=== PATIENT | male | born 1980 | race Caucasian/White ===

== ENCOUNTER 2021-09-21 13:08 | Observation (INO) ==
--- NOTE | 2021-09-20 11:53 | Anesthesiology Consultation ---
Date of Service September 20, 2021 Assessment & Plan (1) Encounter for pre-operative examination: Chart Review Chart Review: Acceptable Risk for Surgery (pending preop Covid testing results ) and Patient NOT seen in Pre Admission Testing -Discussed recent compression fractures with Dr. Reilly- patient can proceed as scheduled- use caution with transferring. No head/brain injury per CT scans done in ER 09/14/21. Per nursing assessment 09/20/2021, patient denies any recent travel. No known COVID infection in the past 90 days. Patient is fully vaccinated for COVID. No known Covid positive exposures or Covid related symptoms. Preop Covid testing 09/20/21= results pending History Surgery Operation Date: 09/21/21 07:00 Proposed Procedures p Right Foot Open Reduction Internal Fixation Calcaneus Fracture - Chago Dumont DO Height/Weight Height: 5 ft 7 in Weight: 77.111 kg Allergies Allergy/AdvReac Type Severity Reaction Status Date / Time gabapentin Allergy Intermediate SUICIDAL Verified 09/20/21 11:57 THOUGHTS pollen extracts Allergy Intermediate ITCHY Verified 09/20/21 11:57 EYES, SNEEZING, CONGESTION Medications Home Medications Medication Instructions Recorded Confirmed Last Taken lithium carbonate 600 mg capsule 1,200 mg PO HS 11/08/19 09/20/21 09/02/21 mirtazapine 15 mg tablet 7.5 mg PO HS 11/08/19 09/20/21 09/02/21 Medical Marijuana 1 dose DIRECTED PRN NEEDED 06/02/21 09/20/21 Unknown benztropine 1 mg tablet 1 mg PO BID 06/02/21 09/20/21 09/03/21 08:00 propranolol 10 mg tablet 10 mg PO BID 06/02/21 09/20/21 09/03/21 08:00 quetiapine 300 mg tablet 300 mg PO HS 09/03/21 09/20/21 09/02/21 oxycodone 5 mg tablet 5 mg PO Q6H PRN pain #12 tabs 09/14/21 Unknown naltrexone microspheres 380 mg 380 mg IM UD 09/20/21 09/20/21 Unknown intramuscular suspension,extended release (Vivitrol) Past Medical History Medical History Anxiety and depression Bipolar II disorder (08/28/11) Compression fracture Noted on 09/14/[address] - "acute superior endplate compression fractures of T12 and L1 with minimal loss of height" (Pt s/p fall out of tree stand) Herniated intervertebral disc History of alcoholism Polysubstance dependence (08/28/11) Schizophrenia Seizure As a child Past Family History Family History Other No family history of adverse response to anesthesia Past Surgical History Surgical History History of hand surgery Rt History of wisdom tooth extraction No pertinent past surgical history Social History Smoking Status: Current every day smoker tobacco type: cigarettes Smoking cigarettes per day: 10 per day Do You Dip or Chew Tobacco: No (quit ) Hx Alcohol Use: Yes alcohol intake frequency: other (quit drinking 3-4 years ago- on vivitrol monthly ) Hx Substance Use: Yes substance use type: marijuana Substance Use Type Other:: medical marijuana Last Used Substance: Days (ago) Lab Results Anesthesia Preop Results Results Anesthesia Widget: WBC 16.41 K/ul (4.8-10.8) H 09/14/21 Hgb 15.5 g/dl (14.0-18.0) 09/14/21 Hct 44.4 % (40.1-51.0) 09/14/21 Plt 290 K/uL (130-400) 09/14/21 Na 136 mmol/L (136-145) 09/14/21 K 3.8 mmol/L (3.5-5.1) 09/14/21 Cl 105 mmol/L (98-107) 09/14/21 CO2 20 mmol/L (21-32) L 09/14/21 BUN 15 mg/dl (6-23) 09/14/21 Creat 1.00 mg/dl (0.6-1.4) 09/14/21 Glucose Level 111 mg/dl (70-99(Fasting)) H 09/14/21 PT 10.7 Seconds (9.0-12.0) 09/03/21 PTT 28.9 Seconds (21.0-31.0) 09/03/21 INR 1.0 (0.9-1.1) 09/03/21 Testing Electrocardiogram Date: 09/14/21 Findings: + NSR @ (79bpm ) Normal EKG per cardio. Chest X-Ray Date: 09/03/21 Findings: + NAD 1 view CXR Minimal bibasilar atelectasis. Other Testing CT of the Chest, Lumbar Spine, and Abdomen/Pelvis 09/14/21= There are acute superior endplate compression fractures of T12 and L1 with minimal loss of height. No additional fracture is seen. There is no airspace consolidation, pleural effusion, or pneumothorax. There is no evidence of solid organ injury in the abdomen or pelvis. Right gluteal soft tissue injury/laceration. Head CT 09/14/2021 = no acute intracranial hemorrhage, no evidence of acute territorial infarction or other acute intracranial disease process. Face CT 09/14/2021 = no acute abnormality. Chronic left frontal and ethmoid sinusitis.
--- NOTE | 2021-09-20 18:04 | History & Physical Report ---
Date of Service September 20, 2021 Assessment & Plan (1) Closed right calcaneal fracture: Plan: Schedule an ORIF right calcaneus fracture for 09/21/2021. All potential risks, benefits, complications, alternatives, and rehab have been discussed with the patient and he wishes to proceed. For aspirin 81 mg twice daily x4 weeks for postoperative DVT prophylaxis. Calcaneus location: unspecified portion of calcaneus Encounter type: initial encounter Fracture alignment: displaced Qualified Code(s): S92.001A - Unspecified fracture of right calcaneus, initial encounter for closed fracture History of Present Illness Chief Complaint: Right heel pain Primary Care Provider: Domo Choe, This is a patient who sustained fall from height, he states approximately 20 feet ago, and had an inability to ambulate. He had x-rays performed which noted a calcaneus fracture. He later had a CT scan which noted a comminuted, intra- articular, displaced calcaneus fracture. He is now being set up for surgical treatment. Allergies Allergy/AdvReac Type Severity Reaction Status Date / Time gabapentin Allergy Intermediate SUICIDAL Verified 09/20/21 11:57 THOUGHTS pollen extracts Allergy Intermediate ITCHY Verified 09/20/21 11:57 EYES, SNEEZING, CONGESTION Home Medications Medication Instructions Recorded Confirmed Type lithium carbonate 600 mg capsule 1,200 mg PO HS 11/08/19 09/20/21 History mirtazapine 15 mg tablet 7.5 mg PO HS 11/08/19 09/20/21 History Medical Marijuana 1 dose DIRECTED PRN NEEDED 06/02/21 09/20/21 History benztropine 1 mg tablet 1 mg PO BID 06/02/21 09/20/21 History propranolol 10 mg tablet 10 mg PO BID 06/02/21 09/20/21 History quetiapine 300 mg tablet 300 mg PO HS 09/03/21 09/20/21 History oxycodone 5 mg tablet 5 mg PO Q6H PRN pain #12 tabs 09/14/21 Rx naltrexone microspheres 380 mg 380 mg IM UD 09/20/21 09/20/21 History intramuscular suspension,extended release (Vivitrol) Past Med/Surg History Medical History Anxiety and depression Bipolar II disorder (06/27/12) Compression fracture Noted on 09/14/[address] - "acute superior endplate compression fractures of T12 and L1 with minimal loss of height" (Pt s/p fall out of tree stand) Herniated intervertebral disc History of alcoholism quit 3-4 years ago - on vivitrol monthly Polysubstance dependence (08/28/11) Poor historian Schizophrenia Seizure As a child Surgical History History of hand surgery Rt History of wisdom tooth extraction No pertinent past surgical history Family History Other No family history of adverse response to anesthesia Social History Smoking Status: Current every day smoker Tobacco Type: Cigarettes Cigarettes Per Day: 10 per day; Second Hand Exposure: No; Do You Dip or Chew Tobacco: No (quit ); Tobacco Cessation Education Requested by Patient: No Hx Alcohol Use: Yes Hx Substance Use: Yes Last Used Substance: Days (ago) Substance Use Type Other:: medical marijuana Preferred Language: Cambodian Communication Ability: Effective Measurement Specialist Required: No Beliefs That Will Affect Care: None marital status: Single Current Living Situation: Family current occupational status: disabled Feels Safe at Home: Yes Safety Concerns: Feels Safe At This Time Assistive Devices: Crutches Physical Exam Constitutional: well developed and well nourished; no acute distress ENMT: external ear and nose normal, oropharynx normal Neck: trachea midline Respiratory: normal respiratory effort, lungs clear to auscultation Cardiovascular: Rate/Rhythm: regular rate and regular rhythm Gastrointestinal (Abdomen): normal bowel sounds, soft, nontender, no hepatosplenomegaly Musculoskeletal: Ankle: + ecchymosis and + joint line tenderness (ankle) (Right calcaneus); no skin erythema Skin: no rashes, warm and dry Trauma: no evidence of skin trauma Neurologic: normal touch/pain/proprioception Psychiatric: A+Ox3, euthymic affect Speech: normal rate/rhythm/volume of speech Lymphatic: no cervical or axillary lymphadenopathy
[~2021-09-21 13:08] MED LIST: LACTATED RINGER'S 1,000 ML IV SCH; ROPIVACAINE 0.5% 5 MG/ML 30 ML VIAL ONE; SODIUM CHLORIDE 0.9% INJ 10 ML VIAL ONE; ceFAZolin 2000MG 2,000 MG/15 ML SYR IV SCH
--- NOTE | 2021-09-21 13:34 | History & Physical Bridge Note ---
Date of Service September 21, 2021 History & Physical Bridge Note I have examined the patient, reviewed the History & Physical and in the interval since the performance of the History & Physical I have noted the following changes of clinical significance: no changes noted
[2021-09-21] MEDS ORDERED: PROPOFOL IV EMULSION 10 MG/ML 20 ML VIAL IV ONE (13:42)
[2021-09-21] MEDS ORDERED: ROCURONIUM BROMIDE 10 MG/ML 5 ML VIAL IV ONE ×3 (13:42→17:06)
[2021-09-21] MEDS ORDERED: fentaNYL citrate 100 MCG/2 ML VIAL ONE (13:42)
[2021-09-21] MEDS ORDERED: ONDANSETRON INJ 2 MG/ML 2 ML VIAL ONE (13:42)
[2021-09-21] MEDS ORDERED: MIDAZOLAM HCL 1 MG/ML 2ML VIAL ONE (13:42)
[2021-09-21] MEDS ORDERED: LIDOCAINE 2% 2 ML VIAL/AMP(20MG/ML) INFIL ONE (13:42)
[2021-09-21] MEDS ORDERED: DEXAMETHASONE SOD INJ 4 MG/ML VIAL ONE ×2 (13:42→17:06)
[2021-09-21] MEDS ORDERED: ACETAMINOPHEN 1000 MG/100 ML IV IV ONE (15:25)
[2021-09-21] MEDS ORDERED: BUPIVACAINE 0.5 % 5 MG/1 ML MPF 30ML VIAL ONE (15:54)
[2021-09-21] MEDS ORDERED: ceFAZolin 330 MG/ML 1 GM VIAL ONE (15:54)
[2021-09-21] MEDS ORDERED: KETAMINE 50 MG/5 ML SYRINGE ONE (15:56)
[2021-09-21] MEDS ORDERED: SUGAMMADEX SODIUM 200 MG/2 ML VIAL IV ONE (16:34)
[2021-09-21] MEDS ORDERED: DexMEDEtomidine HCL IV 100 MCG/ML VIAL IV ONE (16:34)
[2021-09-21] MEDS ORDERED: PHENYLEPHRINE HCL 10 MG/ML VIAL ONE (17:50)
[2021-09-21] MEDS ORDERED: HYDROmorphone INJ 2 MG/ML SYR/VIAL ONE (18:12)
[2021-09-21] MEDS ORDERED: GLYCOPYRROLATE 0.2 MG/ML VIAL ONE (18:22)
[2021-09-21] MEDS ORDERED: NEOSTIGMINE METHYLSULFATE 1 MG/ML 10ML VIAL ONE (18:22)
--- NOTE | 2021-09-21 18:47 | Fluoroscopy Report ---
FL ankle RT min 3V RTN CLINICAL HISTORY: ORIF RT ANKLE TECHNIQUE: 3 views were obtained with the C-arm in the OR with the above procedure. Total fluoroscopy time was 50 seconds. Total skin dose was 2.13 mGy. Comparison: Comparison is made to ankle radiograph 09/14/2021 FINDINGS/IMPRESSION: Intraoperative images were obtained of open reduction and internal fixation of r ight ankle and calcaneal fractures Please correlate with intraoperative fluoroscopy and operative report. ACT 112: Negative or not required by law. Electronically signed by: Kyle Bryant M.D. 09/21/2021 6:46 PM
--- NOTE | 2021-09-21 18:59 | Post Operative Brief Note ---
Immediate Post Op Note v1 Date of Surgery September 21, 2021 Pre & Post Diagnosis Operation Date: 09/21/21 07:00 Pre-Op Diagnosis: Right Foot displaced, comminuted, intra-articular calcaneus Fracture, Fall from a height greater than 10 feet Post-Op Diagnosis: Right Foot displaced, comminuted, intra-articular calcaneus Fracture, Fall from a height greater than 10 feet I identified the patient and participated in the time-out.: Yes Procedure Operation Date: 09/21/21 07:00 Actual Procedures p Right Foot Open Reduction Internal Fixation displaced, comminuted, intra- articular calcaneus Fracture(Right) - Chago Dumont DO Surgeon Chago Dumont DO Industrial Property Appraiser Stephen Galeas PA-C Estimated Blood Loss 7 Findings Consistent with Post-Op Diagnosis Anesthesia Type General Regional Complications none Disposition Accompanied Patient To Recovery: No
--- NOTE | 2021-09-21 19:52 | Anesthesiology Progress Note ---
Date of Service September 21, 2021 Anesthesia Post Procedure Vital Signs Vital Signs: Temp Pulse Pulse Resp BP Pulse Ox O2 Del Method 09/21/21 19:39 69 17 115/80 94 Room Air 09/21/21 19:20 63 17 120/80 98 Oxymask 09/21/21 19:10 66 17 118/78 98 Oxymask 09/21/21 19:30 36.4 C L 65 19 121/76 98 Room Air 09/21/21 19:02 36.5 C 73 24 123/70 100 Oxymask 09/21/21 13:29 36.5 C 65 20 139/74 95 Room Air O2 Flow Rate 09/21/21 19:39 09/21/21 19:20 2 09/21/21 19:10 4 09/21/21 19:30 09/21/21 19:02 6 09/21/21 13:29 Transfer of Care Handoff Completed per policy Notes Mental Status: alert / awake / arousable and participated in evaluation Patient Amnestic to Procedure: Yes Nausea / Vomiting: adequately controlled Pain: adequately controlled Airway Patency, RR, SpO2: stable & adequate BP & HR: stable & adequate Hydration State: stable & adequate Anesthetic Complications: no major complications apparent and Pt Satisfied with anesthetic care
[2021-09-21] MEDS ORDERED: bisacodyL 10 MG SUPP PR PRN (19:57)
[2021-09-21] MEDS ORDERED: ALUMINUM/MAGNESIUM SUSP 30 ML UDC PO PRN (19:57)
[2021-09-21] MEDS ORDERED: diphenhydrAMINE Capsule 25 MG CAP PO PRN (19:57)
[2021-09-21] MEDS ORDERED: HYDROmorphone INJ 0.5 MG/0.5 ML SYR IV PRN (19:57)
[2021-09-21] MEDS ORDERED: METOCLOPRAMIDE HCL INJ 5 MG/ML 2 ML VIAL IV PRN (19:57)
[2021-09-21] MEDS ORDERED: NALOXONE HCL 0.4 MG/1 ML VIAL/CARP IV PRN (19:57)
[2021-09-21] MEDS ORDERED: MAGNESIUM HYDROXIDE SUSP 30 ML UDC PO PRN (19:57)
[2021-09-21] MEDS ORDERED: ONDANSETRON INJ 2 MG/ML 2 ML VIAL IV PRN (19:57)
[2021-09-21] MEDS: SODIUM CHLORIDE 0.9% 1000ML 1,000 ML IV SCH (20:05)
[2021-09-21] MEDS ORDERED: LITHIUM CARBONATE 300 MG TAB PO SCH (21:00)
[2021-09-21] MEDS ORDERED: QUEtiapine FUMARATE 300 MG TABLET PO SCH (21:00)
[2021-09-21] MEDS ORDERED: MIRTAZAPINE TAB 15 MG TAB PO SCH (21:00)
[2021-09-21] MEDS ORDERED: SENNA 8.6 MG TAB PO SCH (21:00)
[2021-09-21] MEDS: NO NSAIDS SCH (21:16)
[2021-09-21] MEDS: BENZTROPINE MESYLATE 1 MG TAB PO SCH (21:39)
[2021-09-21] MEDS: ASPIRIN 81 MG ECTAB PO SCH (21:41)
[2021-09-21] MEDS: ACETAMINOPHEN 500 MG TAB PO SCH (21:42)
[2021-09-21] MEDS: DOCUSATE SODIUM 100 MG CAP PO SCH (21:45)
[2021-09-21] MEDS: PROPRANOLOL HCL 10 MG TAB PO SCH (21:47)
[2021-09-21] MEDS ORDERED: hydrOXYzine HCl 10 MG TAB PO PRN (23:44)
[2021-09-22] MEDS: ceFAZolin 2000MG 2,000 MG/15 ML SYR IV SCH ×2 (00:18→08:34)
--- NOTE | 2021-09-22 01:56 | Operative Report (OR) ---
DATE OF PROCEDURE: 09/21/2021 PREOPERATIVE DIAGNOSES: 1. Right displaced, comminuted intraarticular calcaneus fracture. 2. Fall from a height greater than 10 feet. POSTOPERATIVE DIAGNOSES: 1. Right displaced, comminuted, intraarticular calcaneus fracture. 2. Fall from a height greater than 10 feet. PROCEDURE: Right open reduction and internal fixation of displaced, comminuted intraarticular calcaneus fracture with a large Biomet calcaneal fracture plate and multiple 3.5 mm cortical screws. SURGEON: Chago Dumont DO. JUNIOR HIGH SCHOOL PRINCIPAL: Stephen Galeas PA-C who was present for patient positioning, sterile prep and drape, management of retractors and instruments. He was present through the critical portions of the case including wound closure, application of sterile dressing and transport of the patient to recovery. ANESTHESIA: General, regional. SPECIMENS: None. DRAINS: None. COMPLICATIONS: None. BLOOD LOSS: 7 mL. PERTINENT HISTORY: This is a 41-year-old gentleman who was in a deer blind tree stand and for some purpose or reason, he fell out of the tree stand landing on his right lower extremity. He had severe pain, unable to ambulate. Eventually after being extricated from the strauss, he was presented to the Emergency Department, he was evaluated. Radiographs and CT scan were performed noting a displaced, comminuted intraarticular calcaneus fracture, right lower extremity. He was placed in a splint and referred for orthopedics. His skin was evaluated and then he was scheduled for surgery as indicated. All potential risks, benefits, complications, alternatives, rehab potential for incomplete relief of symptoms, need for further surgery, DVT, PE, , persistent pain, swelling, scarring, weakness, neurovascular injury, wound complications, hardware failure, nonunion, malunion, bone fracture were discussed with the patient and his mother. Also discussed the specific importance of zero tobacco use as this could compromise the tissue flap associated with this fracture pattern. They gave assent that he would comply and remain tobacco free during the postoperative recovery course. He understands the high risk of tissue necrosis and flap dehiscence of the surgical site should he not follow postoperative instructions implicitly. DETAILS OF PROCEDURE: The patient was taken to the operative suite and placed supine on the operating room. After identification of the proper operative site the patient was anesthetized. Endotracheal tube was placed. He had a popliteal block of the right lower extremity. The right lower extremity had a tourniquet applied on the proximal thigh over cast padding. The patient was placed in left lateral decubitus position with the affected side up on a beanbag and the right lower extremity was then sterilely prepped and draped in the usual fashion, elevated, exsanguinated with an Esmarch bandage and tourniquet inflated to 350 mmHg. Next, a 15 blade scalpel incision was used to make a curvilinear incision over the calcaneus at the glabrous border of the foot. This full thickness skin flap was sharply elevated. Care was taken to protect the skin edges. Next, K wires were placed in the fibula, talus, and cuboid to perform no-touch technique with elevation of the skin flap. Peroneal tendons were elevated and then the calcaneal fracture was clearly identified. The wound was copiously irrigated with sterile normal saline and suctioned. Small bone fragments were preserved for later use in the operative fixation. Next, the 2.0 mm guide pins were driven from the tuberosity of the calcaneus into the sustentacular fragment to stabilize it with corrected varus, valgus and then a lateral wall fragment was removed, debrided and then reduced. This was pinned in place with two 1.6 mm K wires. Next, after the fragments were stabilized in near anatomic alignment and orientation with reduction of the heel width and zoroastrian normal heel valgus x-rays were obtained confirming position and then a medium size titanium plate was then provisionally fixed with a screw into the subtalar subchondral bone. After rotation and position were confirmed the plate was then firmly affixed to the lateral aspect of the calcaneus. The fracture was noted to be in near- anatomic position and stabilized with multiple screws. The K wires were removed and the skin retractor pins were removed. The wound was irrigated with sterile normal saline. The incision was completely irrigated with bacitracin additive solution and then the bone graft which was saved previously was then placed back into the fracture to encourage bone healing. The full thickness skin flap was then closed using buried interrupted 2-0 Vicryl suture, 3-0 Vicryl sutures and then the skin was closed using 4-0 nylon sutures using Allgower-Donati suture technique with 4-0 nylon sutures. Next the sterile compressive dressing and bulky Ronnie Sierra plaster splint was applied overwrapped with an Claudio wrap. Tourniquet was released. The patient was awakened and taken to recovery in stable condition. I attest to the content of the Intraoperative Record and any orders documented therein. Any exceptions are noted below. Job ID: [id number] MTDD
[2021-09-22] MEDS: oxyCODONE HCL IR 5 MG TAB (IMMEDIATE RELEASE) PO PRN ×2 (03:08→11:53)
[2021-09-22] MEDS: SODIUM CHLORIDE 0.9% 1000ML 1,000 ML IV SCH (06:05)
[2021-09-22] MEDS: ACETAMINOPHEN 500 MG TAB PO SCH ×2 (06:05→13:31)
--- NOTE | 2021-09-22 06:24 | Orthopedic Progress Note ---
Date of Service September 22, 2021 Assessment & Plan (1) Closed right calcaneal fracture: Plan: POD#1 remain NWB RICE pain currently well controlled d/c later today, f/u in the office in 14-16 days Admission and Anticipated Discharge Date Admission Date: September 21, 2021 Subjective POD #1 s/p right Foot Open Reduction Internal Fixation Calcaneus Fracture Review of Systems Review of Systems: All systems reviewed & are unremarkable except as noted in HPI & below Constitutional: no fever, no chills and no sweats Respiratory: no cough and no dyspnea Cardiovascular: no chest pain, no dyspnea and no orthopnea Gastrointestinal: no abdominal pain, no nausea and no vomiting Musculoskeletal: as per Subjective / HPI Physical Exam Physical Exam: Vital Signs Temp Pulse Pulse Resp BP BP Pulse Ox 09/22/21 03:03 36.7 C 65 16 94/63 L 96 09/21/21 23:00 36.9 C 71 16 117/67 97 09/21/21 21:45 36.8 C 59 L 18 113/63 97 09/21/21 21:04 36.7 C 60 16 106/61 97 09/21/21 20:27 36.7 C 57 L 18 115/63 98 09/21/21 19:45 36.8 C 66 18 117/65 94 09/21/21 19:39 69 17 115/80 94 09/21/21 19:20 63 17 120/80 98 09/21/21 19:10 66 17 118/78 98 09/21/21 19:30 36.4 C L 65 19 121/76 98 09/21/21 19:02 36.5 C 73 24 123/70 100 09/21/21 13:29 36.5 C 65 20 139/74 95 O2 Del Method O2 Flow Rate 09/22/21 03:03 Room Air 09/21/21 23:00 Room Air 09/21/21 21:45 Room Air 09/21/21 21:04 Room Air 09/21/21 20:27 Room Air 09/21/21 19:45 Room Air 09/21/21 19:39 Room Air 09/21/21 19:20 Oxymask 2 09/21/21 19:10 Oxymask 4 09/21/21 19:30 Room Air 09/21/21 19:02 Oxymask 6 09/21/21 13:29 Room Air Intake and Output 09/21/21 09/21/21 09/22/21 14:59 22:59 06:59 Intake Total 0 / 8359.748 1825.333 / 1498.33 3 Output Total 600 / 2275 1675 / 2275 Balance -600 / -776.667 -176.667 / -776.66 7 Intake: IV 0 / 998.333 998.333 / 998.333 Lactated Ringe r's 1,000 ml @ 15 0 / 0 mls/hr IV .Q24 H SHEBA Rx#: [id number] Sodium Chlorid e 0.9% 1000ML 1, 998.333 / 998.333 000 ml @ 100 m ls/hr IV .Q10H SHEBA Rx#:[id number] Oral 500 / 500 Output: Urine 600 / 2275 1675 / 2275 Other: Weight 76 kg Weight Measureme nt Method Standing Scale Patient Weight 09/22/21 06:59 Weight 76 kg Constitutional: WD/WN, vitals as above no acute distress Respiratory: normal respiratory effort, lungs clear to auscultation no respiratory distress, no labored breathing and does not use accessory muscles Cardiovascular: RRR, no murmur, no edema Gastrointestinal (Abdomen): normal bowel sounds, soft, nontender, no hepatosplenomegaly Musculoskeletal: right lower leg: able to wiggle his toes, sensation intact. splint fitting well. able to perform SLR, gentle knee ROM without difficulty Results & Data ([facility]) Vital Signs (Past 12 Hours) Vital Signs Temp Pulse Pulse Resp BP BP Pulse Ox 09/22/21 03:03 36.7 C 65 16 94/63 L 96 09/21/21 23:00 36.9 C 71 16 117/67 97 09/21/21 21:45 36.8 C 59 L 18 113/63 97 09/21/21 21:04 36.7 C 60 16 106/61 97 09/21/21 20:27 36.7 C 57 L 18 115/63 98 09/21/21 19:45 36.8 C 66 18 117/65 94 09/21/21 19:39 69 17 115/80 94 09/21/21 19:20 63 17 120/80 98 09/21/21 19:10 66 17 118/78 98 09/21/21 19:30 36.4 C L 65 19 121/76 98 09/21/21 19:02 36.5 C 73 24 123/70 100 O2 Del Method O2 Flow Rate 09/22/21 03:03 Room Air 09/21/21 23:00 Room Air 09/21/21 21:45 Room Air 09/21/21 21:04 Room Air 09/21/21 20:27 Room Air 09/21/21 19:45 Room Air 09/21/21 19:39 Room Air 09/21/21 19:20 Oxymask 2 09/21/21 19:10 Oxymask 4 09/21/21 19:30 Room Air 09/21/21 19:02 Oxymask 6 (1) Closed right calcaneal fracture Calcaneus location: unspecified portion of calcaneus Encounter type: initial encounter Fracture alignment: displaced Qualified Code(s): S92.001A - Unspecified fracture of right calcaneus, initial encounter for closed fracture
[2021-09-22 06:28] LABS: Hematocrit (blood only) 37.6 % (40.1-51.0); Hemoglobin 12.5 g/dl (14.0-18.0); Mean Corpuscular Hemoglobin 28.9 pg (25.0-34.0); Mean Corpuscular Hgb Conc 33.2 g/dL (32.0-36.0); Platelet Count 281 K/uL (130-400); RDW Coefficient of Variation 12.7 % (11.5-14.5); RDW Standard Deviation 40.7 fL (36.4-46.3); Red Blood Count 4.32 M/uL (4.63-6.08); White Blood Count 14.28 K/ul (4.8-10.8)
[2021-09-22 07:03] LABS: Calcium 8.5 mg/dl (8.5-10.1); Creatinine Clr Calc Pharmacy 119.2 ml/min; Est GFR (African American) 131.6 ml/min; Est GFR (Non-African American) 113.5 ml/min
[2021-09-22] MEDS: BENZTROPINE MESYLATE 1 MG TAB PO SCH (08:31)
[2021-09-22] MEDS: PROPRANOLOL HCL 10 MG TAB PO SCH (08:31)
[2021-09-22] MEDS: ASPIRIN 81 MG ECTAB PO SCH (08:31)
[2021-09-22] MEDS: DOCUSATE SODIUM 100 MG CAP PO SCH (08:32)
[2021-09-22] MEDS: NO NSAIDS SCH (08:32)
[2021-09-22] MEDS ORDERED: MULTIVITAMIN TAB PO SCH (09:00)
--- NOTE | 2021-09-25 13:26 | Discharge Summary ---
Date of Service September 25, 2021 Admission HPI Per Admitting Provider This is a patient who sustained fall from height, he states approximately 20 feet ago, and had an inability to ambulate. He had x-rays performed which noted a calcaneus fracture. He later had a CT scan which noted a comminuted, intra- articular, displaced calcaneus fracture. He is now being set up for surgical treatment. Principal Diagnosis Right calcaneus fracture Discharge Exam Constitutional well developed and well nourished; no acute distress ENMT external ear and nose normal, oropharynx normal Neck trachea midline Respiratory normal respiratory effort, lungs clear to auscultation Cardiovascular Rate/Rhythm: regular rate and regular rhythm Gastrointestinal (Abdomen) normal bowel sounds, soft, nontender, no hepatosplenomegaly Musculoskeletal Ankle: + surgical incision (Right ankle: Splint C/D/I); no skin erythema Skin no rashes, warm and dry Trauma: no evidence of skin trauma Neurologic normal touch/pain/proprioception Psychiatric A+Ox3, euthymic affect Speech: normal rate/rhythm/volume of speech Lymphatic no cervical or axillary lymphadenopathy Discharge Data Allergies Allergy/AdvReac Type Severity Reaction Status Date / Time gabapentin Allergy Intermediate SUICIDAL Verified 09/21/21 13:20 THOUGHTS pollen extracts Allergy Intermediate ITCHY Verified 09/21/21 13:20 EYES, SNEEZING, CONGESTION Procedures Performed Operation Date: 09/21/21 07:00 Actual Procedures p Right Foot Open Reduction Internal Fixation Calcaneus Fracture(Right) - Chago Dumont DO Ordered Studies 09/21/21 05:00 US - OR guided needle placemen Routine 09/21/21 15:00 FL ankle RT min 3V RTN Routine Hospital Course (1) Closed right calcaneal fracture: POD#1 remain NWB RICE pain currently well controlled d/c later today, f/u in the office in 14-16 days Total Time Total Time Spent Total Time Spent (In Minutes): 20 Discharge Plan Discharge Items Patient Disposition: Home - Self-Care Reason For Visit: Right Foot Calcaneus Fracture Discharge Diagnosis: right calcaneus fracture Activity: Per Instructions section Weightbearing: Right non-weightbearing Non-emergency contact: Surgeon Call non-emergency contact if: your pain is not controlled, your pain is w orsening and your temperature is above 101 Follow-up/Referrals: Domo Choe DO [Primary Care Provider] - Diet: Regular Addtl Attending Provider Instructions: ACTIVITY RECOMMENDATIONS: Limitations: No weight bearing to affected limb at all times. SPECIAL CARE INSTRUCTIONS: * Take Aspirin 81 mg every 12 hours for 4 weeks for post operative blood clot prophylaxis. Start the first dose tonight. * Some drainage onto the dressing is normal and is no cause for alarm. * Some swelling is natural especially after walking. * When resting, keep your foot elevated above the level of your heart. * Call [facility] if you notice: -Increased drainage -Fever over 101 degrees F -Severe constant pain BANDAGE: * Leave bandage/cast in place unless otherwise directed. * Keep bandage/cast dry at all times. FOLLOW UP VISIT WITH DR. DUMONT If appointment is not already scheduled: Please call [facility] after you get home today to schedule a follow-up appointment for [address] Dumont at . Pending Studies at Discharge: No Stand-Alone Forms: My [facility] [employer], Smoking Cessation Medications and DC Order Prescriptions: New aspirin 81 mg Tablet,Delayed Release (Dr/Ec) 81 mg PO BID 30 Days Qty: 60 0RF acetaminophen [Tylenol Extra Strength] 500 mg Tablet 1,000 mg PO Q8 21 Days Qty: 126 0RF tramadol 50 mg tablet 50 - 100 mg PO Q6H PRN (Reason: pain) Qty: 30 0RF Rx Instructions: ongoing therapy, supervising dr lissette dumont, max 6 tabs in 24 hours Continued lithium carbonate 600 mg capsule 1,200 mg PO HS mirtazapine 15 mg tablet 7.5 mg PO HS propranolol 10 mg tablet 10 mg PO BID benztropine 1 mg tablet 1 mg PO BID Medical Marijuana 1 dose DIRECTED PRN (Reason: NEEDED) Rx Instructions: UNSURE HOW PT IS USING THIS MED. quetiapine 300 mg tablet 300 mg PO HS Vivitrol 380 mg Suspension,Extended Rel Recon 380 mg IM UD Discontinued oxycodone 5 mg tablet 5 mg PO Q6H PRN (Reason: pain) Qty: 12 0RF Discharge Orders: Discharge Order (Routine); Ordered 09/22/21 Ordered By: Fernando Roberson Admission Data Admit Date/Time: 09/21/21 17:56 Attending Provider: Chago Dumont Admit Provider: Chago Dumont Primary Care Provider: Domo Choe Other Interventions: Discharge Summary Assessment (RN) Last Done: 09/22/21 10:08
== END 2021-09-22 13:38 | disposition home or self-care (01) ==
LOC: ASU 13:08 → 3E 13:08